=== PATIENT | male | born 1965 | race Caucasian/White ===

== ENCOUNTER 2021-11-17 09:29 | Inpatient (IN) | payer MEDICAID, OTHER ==
[~2021-11-17] VITALS: Ht 167.6 cm; Wt 108.4 kg
[2021-11-17] MEDS ORDERED: MORPHINE SULFATE 4 MG/ML CPJ (NOT FOR IM USE) IV ONE (10:15)
[2021-11-17] MEDS ORDERED: KETOROLAC 30MG/ML VIAL IV ONE (10:15)
[2021-11-17] MEDS ORDERED: DEXAMETHASONE 4MG/ML 1ML VIAL IV ONE (10:15)
[2021-11-17] MEDS ORDERED: MORPHINE SULFATE 4 MG/ML CPJ (NOT FOR IM USE) IV STA (12:41)
[2021-11-17 13:48] LABS: BASOPHILS % 0.3 % (0.0-2.0); EOSINOPHILS % 0.4 % (0.0-5.0); HEMATOCRIT. 36.6 % (42.0-52.0); HEMOGLOBIN. 13.1 g/dL (14.0-18.0); LYMPHOCYTES % 7.7 % (20.0-50.0); MEAN CORPUSCULAR HEMOGLOBIN 31.2 pg (28.0-32.0); MEAN PLATELET VOLUME 8.1 fl (7.4-10.4); NEUTROPHILS % 88.6 % (40.0-76.0); PLATELET 316 x1000/uL (130-400); RED CELL DISTRIBUTION WIDTH 12.6 % (11.6-14.6)
[2021-11-17 13:56] LABS: CHLORIDE 102 mEq/L (98-107)
[2021-11-17] MEDS ORDERED: ACETAMINOPHEN 325MG TABLET PO PRN ×2 (16:15)
[2021-11-17] MEDS ORDERED: DOCUSATE SODIUM 100MG CAPSULE PO PRN (16:15)
[2021-11-17] MEDS ORDERED: HYDROCODONE/ACETAMINOPHEN 10/325MG TABLET PO PRN (16:15)
[2021-11-17] MEDS ORDERED: LORAZEPAM 0.5MG TABLET PO PRN (16:15)
[2021-11-17] MEDS ORDERED: IPRATROPIUM/ALBUTEROL 0.5-3(2.5)MG/3ML NEB HHN PRN (16:15)
[2021-11-17] MEDS ORDERED: HYDROCODONE/ACETAMINOPHEN 5/325MG TABLET PO PRN (16:15)
[2021-11-17] MEDS ORDERED: CLONIDINE 0.1MG TABLET PO PRN (16:15)
[2021-11-17] MEDS ORDERED: NALOXONE HCL 0.4MG/ML VIAL IV PRN (16:30)
[2021-11-17 20:00] VITALS: BP_SYST 127; BP_SYST 139; BP_DIAS 63; BP_DIAS 73
[2021-11-17] MEDS: HYDROCODONE/ACETAMINOPHEN 10/325MG TABLET PO PRN (21:45)
[2021-11-17] MEDS: ONDANSETRON HCL 4MG/2ML INJ IV PRN (21:53)
[2021-11-17] MEDS ORDERED: HYDR-4001 PO (22:41)
[2021-11-17] MEDS ORDERED: TRAM50TA3 PO (22:41)
[2021-11-17] MEDS ORDERED: LISI20TA31 MT (22:42)
[2021-11-18] VITALS: BP 124/47
[2021-11-18 04:00] VITALS: BP 123/70
[2021-11-18] MEDS ORDERED: *PATIENT'S OWN MEDICATION STORAGE XX SCH (04:45)
[2021-11-18 07:44] LABS: BASOPHILS % 0.4 % (0.0-2.0); EOSINOPHILS % 0.8 % (0.0-5.0); HEMATOCRIT. 35.8 % (42.0-52.0); HEMOGLOBIN. 12.7 g/dL (14.0-18.0); LYMPHOCYTES % 20.3 % (20.0-50.0); MEAN CORPUSCULAR HEMOGLOBIN 31.4 pg (28.0-32.0); MEAN CORPUSCULAR VOLUME 88.1 fL (80.0-94.0); MEAN PLATELET VOLUME 8.4 fl (7.4-10.4); MONOCYTES % 9.6 % (2.0-8.0); NEUTROPHILS % 68.9 % (40.0-76.0); PLATELET 329 x1000/uL (130-400); RED BLOOD CELL COUNT 4.06 mill/uL (4.7-6.1); RED CELL DISTRIBUTION WIDTH 12.5 % (11.6-14.6)
[2021-11-18 07:48] LABS: CHLORIDE 103 mEq/L (98-107)
[2021-11-18 08:00] VITALS: BP 138/64
[2021-11-18] MEDS ORDERED: DEXTROSE 50% WATER 50ML SYRINGE IV PRN ×2 (12:45)
[2021-11-18] MEDS: INSULIN LISPRO 100 UNITS/ML SUBCUT SCH ×3 (12:50→22:11)
[2021-11-18] MEDS: LISINOPRIL 20MG TABLET PO SCH (13:18)
[2021-11-18] MEDS: LIDOCAINE 5% PATCH TOP SCH (13:19)
[2021-11-18] MEDS: BLOOD SUGAR DIAGNOSTIC STRIP TEST SCH ×3 (13:19→21:39)
[2021-11-18 15:23] VITALS: BP 127/59
[2021-11-18] MEDS: HYDROCODONE/ACETAMINOPHEN 10/325MG TABLET PO PRN (15:40)
[2021-11-18] MEDS: ENOXAPARIN 30MG/0.3ML SYR SUBCUT SCH ×2 (15:44→22:12)
[2021-11-18 16:42] LABS: CLARITY URINE CLEAR (CLEAR); COLOR URINE YELLOW (YELLOW); KETONES URINE NEGATIVE (NEGATIVE); LEUKOCYTE ESTERASE URINE NEGATIVE (NEGATIVE); NITRITE URINE NEGATIVE (NEGATIVE); OCCULT BLOOD URINE NEGATIVE (NEGATIVE); PH URINE 6.5 (4.5-8.0); PROTEIN URINE NEGATIVE (NEGATIVE); SPECIFIC GRAVITY URINE 1.019 (1.005-1.030)
[2021-11-18 17:02] LABS: *AMPHETAMINES SCREEN URINE NEGATIVE (NEGATIVE); *BARBITURATES SCREEN URINE NEGATIVE (NEGATIVE)
[2021-11-18 17:03] LABS: *BENZODIAZEPINES SCREEN URINE NEGATIVE (NEGATIVE); *COCAINE SCREEN URINE NEGATIVE (NEGATIVE); CANNABINOID URINE SCREEN NEGATIVE (NEGATIVE); METHADONE URINE SCREEN NEGATIVE (NEGATIVE); OPIATES URINE SCREEN PRESUMTIVE POSITIVE (NEGATIVE); PHENCYCLIDINE URINE SCREEN NEGATIVE (NEGATIVE)
[2021-11-18] MEDS: DEXAMETHASONE 4MG/ML 1ML VIAL IV SCH (17:53)
[2021-11-18 20:00] VITALS: BP 122/48
[2021-11-18] MEDS: MORPHINE SULFATE 2 MG/ML CPJ (NOT FOR IM USE) IV PRN (22:12)
[2021-11-19] VITALS: BP 128/40
[2021-11-19] MEDS: DEXAMETHASONE 4MG/ML 1ML VIAL IV SCH ×4 (00:28→17:39)
[2021-11-19 04:00] VITALS: BP 126/47
[2021-11-19] MEDS: BLOOD SUGAR DIAGNOSTIC STRIP TEST SCH ×4 (06:22→21:31)
[2021-11-19] MEDS: OMEPRAZOLE 20MG CAPSULE EXTENDED RELEASE PO SCH (06:46)
[2021-11-19] MEDS: INSULIN LISPRO 100 UNITS/ML SUBCUT SCH ×4 (07:50→21:40)
[2021-11-19 08:00] VITALS: BP 143/64
[2021-11-19 08:01] LABS: BASOPHILS % 0.3 % (0.0-2.0); EOSINOPHILS % 0.5 % (0.0-5.0); HEMATOCRIT. 35.7 % (42.0-52.0); HEMOGLOBIN. 12.8 g/dL (14.0-18.0); LYMPHOCYTES % 16.8 % (20.0-50.0); MEAN CORPUSCULAR HEMOGLOBIN 31.2 pg (28.0-32.0); MEAN CORPUSCULAR VOLUME 87.2 fL (80.0-94.0); MEAN PLATELET VOLUME 8.2 fl (7.4-10.4); MONOCYTES % 5.2 % (2.0-8.0); NEUTROPHILS % 77.2 % (40.0-76.0); PLATELET 362 x1000/uL (130-400); RED CELL DISTRIBUTION WIDTH 12.4 % (11.6-14.6)
[2021-11-19 08:04] LABS: CHLORIDE 102 mEq/L (98-107)
[2021-11-19] MEDS: ENOXAPARIN 30MG/0.3ML SYR SUBCUT SCH ×2 (09:00→21:15)
[2021-11-19 12:00] VITALS: BP 133/60
[2021-11-19] MEDS: LISINOPRIL 20MG TABLET PO SCH (13:10)
[2021-11-19] MEDS: LIDOCAINE 5% PATCH TOP SCH (13:21)
[2021-11-19 16:00] VITALS: BP 127/56
[2021-11-19 20:00] VITALS: BP 107/62
[2021-11-20] MEDS: DEXAMETHASONE 4MG/ML 1ML VIAL IV SCH ×4 (00:53→13:12)
[2021-11-20] MEDS: OMEPRAZOLE 20MG CAPSULE EXTENDED RELEASE PO SCH (06:57)
[2021-11-20] MEDS: INSULIN LISPRO 100 UNITS/ML SUBCUT SCH ×4 (07:50→21:04)
[2021-11-20 08:00] VITALS: BP 133/55
[2021-11-20] MEDS: BLOOD SUGAR DIAGNOSTIC STRIP TEST SCH ×4 (08:02→21:04)
[2021-11-20 08:33] LABS: BASOPHILS % 0.2 % (0.0-2.0); EOSINOPHILS % 0.1 % (0.0-5.0); HEMATOCRIT. 36.6 % (42.0-52.0); HEMOGLOBIN. 12.8 g/dL (14.0-18.0); MEAN CORPUSCULAR HEMOGLOBIN 30.3 pg (28.0-32.0); MEAN CORPUSCULAR VOLUME 86.8 fL (80.0-94.0); MEAN PLATELET VOLUME 8.4 fl (7.4-10.4); MONOCYTES % 5.5 % (2.0-8.0); NEUTROPHILS % 77.2 % (40.0-76.0); PLATELET 392 x1000/uL (130-400); RED BLOOD CELL COUNT 4.22 mill/uL (4.7-6.1); RED CELL DISTRIBUTION WIDTH 12.4 % (11.6-14.6)
[2021-11-20 09:02] LABS: CHLORIDE 103 mEq/L (98-107)
[2021-11-20] MEDS: ENOXAPARIN 30MG/0.3ML SYR SUBCUT SCH ×2 (10:29→20:51)
[2021-11-20] MEDS: LISINOPRIL 20MG TABLET PO SCH (10:29)
[2021-11-20] MEDS: LIDOCAINE 5% PATCH TOP SCH (11:24)
[2021-11-20 12:00] VITALS: BP 137/59
[2021-11-20] MEDS: MORPHINE SULFATE 2 MG/ML CPJ (NOT FOR IM USE) IV PRN (14:17)
[2021-11-20 16:00] VITALS: BP 139/67
[2021-11-20 20:00] VITALS: BP 126/63
[2021-11-21] VITALS: BP 130/68
[2021-11-21] MEDS: HYDROCODONE/ACETAMINOPHEN 5/325MG TABLET PO PRN ×2 (01:15→23:52)
[2021-11-21 04:00] VITALS: BP 128/64
[2021-11-21 05:46] LABS: BASOPHILS % 0.4 % (0.0-2.0); EOSINOPHILS % 0.9 % (0.0-5.0); HEMATOCRIT. 37.1 % (42.0-52.0); HEMOGLOBIN. 13.3 g/dL (14.0-18.0); MEAN CORPUSCULAR HEMOGLOBIN 31.2 pg (28.0-32.0); MEAN PLATELET VOLUME 8.2 fl (7.4-10.4); MONOCYTES % 8.2 % (2.0-8.0); NEUTROPHILS % 56.5 % (40.0-76.0); PLATELET 390 x1000/uL (130-400); RED BLOOD CELL COUNT 4.26 mill/uL (4.7-6.1); RED CELL DISTRIBUTION WIDTH 12.6 % (11.6-14.6)
[2021-11-21] MEDS: BLOOD SUGAR DIAGNOSTIC STRIP TEST SCH ×4 (06:43→20:50)
[2021-11-21] MEDS: FAMOTIDINE 20MG TABLET PO SCH ×2 (06:53→20:33)
[2021-11-21 07:40] LABS: CHLORIDE 103 mEq/L (98-107)
[2021-11-21] MEDS: INSULIN LISPRO 100 UNITS/ML SUBCUT SCH ×4 (07:50→20:50)
[2021-11-21 08:00] VITALS: BP 126/65
[2021-11-21] MEDS: ENOXAPARIN 30MG/0.3ML SYR SUBCUT SCH ×2 (09:20→20:34)
[2021-11-21] MEDS: LIDOCAINE 5% PATCH TOP SCH (09:20)
[2021-11-21] MEDS: DEXAMETHASONE 4MG/ML 1ML VIAL IV SCH (09:21)
[2021-11-21] MEDS: LISINOPRIL 20MG TABLET PO SCH (09:21)
[2021-11-21] MEDS: MORPHINE SULFATE 2 MG/ML CPJ (NOT FOR IM USE) IV PRN (09:30)
[2021-11-21 16:00] VITALS: BP 126/61
[2021-11-21 20:00] VITALS: BP 131/62
[2021-11-22] MEDS: HYDROCODONE/ACETAMINOPHEN 5/325MG TABLET PO PRN ×2 (05:53→05:54)
[2021-11-22 06:34] LABS: CHLORIDE 102 mEq/L (98-107)
[2021-11-22 06:43] LABS: BASOPHILS % 0.6 % (0.0-2.0); EOSINOPHILS % 1.4 % (0.0-5.0); HEMATOCRIT. 38.6 % (42.0-52.0); HEMOGLOBIN. 13.4 g/dL (14.0-18.0); LYMPHOCYTES % 35.5 % (20.0-50.0); MEAN CORPUSCULAR HEMOGLOBIN 30.2 pg (28.0-32.0); MEAN CORPUSCULAR VOLUME 87.3 fL (80.0-94.0); MONOCYTES % 8.4 % (2.0-8.0); NEUTROPHILS % 54.1 % (40.0-76.0); PLATELET 437 x1000/uL (130-400); RED BLOOD CELL COUNT 4.43 mill/uL (4.7-6.1); RED CELL DISTRIBUTION WIDTH 12.5 % (11.6-14.6)
[2021-11-22] MEDS: BLOOD SUGAR DIAGNOSTIC STRIP TEST SCH ×4 (07:33→21:33)
[2021-11-22] MEDS: FAMOTIDINE 20MG TABLET PO SCH ×2 (07:33→21:29)
[2021-11-22] MEDS: INSULIN LISPRO 100 UNITS/ML SUBCUT SCH ×4 (07:50→21:31)
[2021-11-22 08:00] VITALS: BP 120/62
[2021-11-22] MEDS: DEXAMETHASONE 4MG/ML 1ML VIAL IV SCH (08:02)
[2021-11-22] MEDS: LISINOPRIL 20MG TABLET PO SCH (08:04)
[2021-11-22] MEDS: ENOXAPARIN 30MG/0.3ML SYR SUBCUT SCH (08:04)
[2021-11-22] MEDS: LIDOCAINE 5% PATCH TOP SCH (08:05)
[2021-11-22 12:00] VITALS: BP 122/50
[2021-11-22 15:13] LABS: PROTHROMBIN TIME 10.9 sec (9.6-11.0)
[2021-11-22 15:55] VITALS: BP 132/61
[2021-11-22 20:00] VITALS: BP 153/77
[2021-11-23] VITALS (41 sets, daily range): BP systolic 90–159; BP diastolic 42–85
[2021-11-23] MEDS ORDERED: LIDOCAINE HCL/EPINEPHRINE 1%-EPI 1:100,000 30 ML VIAL INFIL ONE (05:37)
[2021-11-23] MEDS ORDERED: GENTAMICIN SULF 40MG/ML 2ML VIAL ONE (05:38)
[2021-11-23] MEDS ORDERED: THROMBIN (BOVINE) 5000 UNITS/VIAL TOP ONE (05:38)
[2021-11-23] MEDS: INSULIN LISPRO 100 UNITS/ML SUBCUT SCH ×4 (06:56→21:43)
[2021-11-23] MEDS: BLOOD SUGAR DIAGNOSTIC STRIP TEST SCH ×4 (07:12→21:43)
[2021-11-23] MEDS: FAMOTIDINE 20MG TABLET PO SCH ×2 (07:13→21:42)
[2021-11-23 07:37] LABS: BASOPHILS % 0.5 % (0.0-2.0); EOSINOPHILS % 1.5 % (0.0-5.0); HEMATOCRIT. 38.3 % (42.0-52.0); HEMOGLOBIN. 13.3 g/dL (14.0-18.0); LYMPHOCYTES % 39.4 % (20.0-50.0); MEAN CORPUSCULAR HEMOGLOBIN 30.5 pg (28.0-32.0); MEAN CORPUSCULAR VOLUME 87.7 fL (80.0-94.0); MEAN PLATELET VOLUME 7.9 fl (7.4-10.4); MONOCYTES % 7.9 % (2.0-8.0); NEUTROPHILS % 50.7 % (40.0-76.0); PLATELET 454 x1000/uL (130-400); RED BLOOD CELL COUNT 4.37 mill/uL (4.7-6.1); RED CELL DISTRIBUTION WIDTH 12.5 % (11.6-14.6)
[2021-11-23 07:54] LABS: CHLORIDE 104 mEq/L (98-107)
[2021-11-23 08:01] LABS: PHOSPHORUS 3.3 mg/dL (2.5-4.9)
[2021-11-23] MEDS: LISINOPRIL 20MG TABLET PO SCH (08:24)
[2021-11-23] MEDS: LIDOCAINE 5% PATCH TOP SCH (08:24)
[2021-11-23] MEDS: DEXAMETHASONE 4MG/ML 1ML VIAL IV SCH (08:24)
[2021-11-23] MEDS ORDERED: ROCURONIUM BROMIDE 10MG/ML VIAL 5ML IV ONE (10:45)
[2021-11-23] MEDS ORDERED: HYDROMORPHONE HCL/PF 2MG/ML (OR) ONE (10:45)
[2021-11-23] MEDS ORDERED: CEFAZOLIN SODIUM 1000MG/VIAL ONE (10:46)
[2021-11-23] MEDS ORDERED: DEXAMETHASONE 4MG/ML 1ML VIAL ONE (10:46)
[2021-11-23] MEDS ORDERED: HYDRALAZINE 20MG/ML VIAL ONE ×2 (11:00→13:06)
[2021-11-23] MEDS ORDERED: VECURONIUM BROMIDE 10 MG/VIAL IV ONE (11:08)
[2021-11-23] MEDS ORDERED: ALBUMIN HUMAN 25GM/100ML (25%) IV ONE (11:15)
[2021-11-23] MEDS ORDERED: NALOXONE HCL 0.4MG/ML VIAL IV PRN (13:00)
[2021-11-23] MEDS ORDERED: NALOXONE INJ IV PRN (13:30)
[2021-11-23] MEDS ORDERED: DIPHENHYDRAMINE INJ IV PRN (13:30)
[2021-11-23] MEDS ORDERED: HYDROMORPHONE PCA 10MG/50ML IV PRN (13:30)
[2021-11-23] MEDS ORDERED: ONDANSETRON INJ IV PRN (13:30)
[2021-11-23] MEDS ORDERED: CEFAZOLIN SODIUM 1000MG/VIAL IV SCH (14:00)
[2021-11-23] MEDS: NICARDIPINE 100 MG in SODIUM CHLORIDE 0.9% 60 ML IV PRN (14:30)
[2021-11-23] MEDS: DEXT 5%/LACTATED RINGERS 1,000 ML IV SCH ×2 (14:30→21:46)
[2021-11-23] MEDS: CEFAZOLIN 1000MG PREMIX 50 ML IV SCH (17:32)
[2021-11-24] VITALS (50 sets, daily range): BP systolic -10–154; BP diastolic -10–93
[2021-11-24] MEDS: CEFAZOLIN 1000MG PREMIX 50 ML IV SCH ×3 (01:15→19:38)
[2021-11-24] MEDS: NICARDIPINE 100 MG in SODIUM CHLORIDE 0.9% 60 ML IV PRN (01:24)
[2021-11-24] MEDS: MORPHINE SULFATE 4 MG/ML CPJ (NOT FOR IM USE) IV PRN ×3 (01:51→10:35)
[2021-11-24 06:00] LABS: BASOPHILS % 0.1 % (0.0-2.0); EOSINOPHILS % 0.3 % (0.0-5.0); HEMATOCRIT. 35.2 % (42.0-52.0); HEMOGLOBIN. 12.1 g/dL (14.0-18.0); LYMPHOCYTES % 12.2 % (20.0-50.0); MEAN CORPUSCULAR HEMOGLOBIN 30.3 pg (28.0-32.0); MEAN CORPUSCULAR VOLUME 88.2 fL (80.0-94.0); MONOCYTES % 8.3 % (2.0-8.0); NEUTROPHILS % 79.1 % (40.0-76.0); PLATELET 416 x1000/uL (130-400); RED BLOOD CELL COUNT 3.99 mill/uL (4.7-6.1); RED CELL DISTRIBUTION WIDTH 12.5 % (11.6-14.6)
[2021-11-24 06:03] LABS: CHLORIDE 103 mEq/L (98-107)
[2021-11-24] MEDS: FAMOTIDINE 20MG TABLET PO SCH ×2 (06:25→21:50)
[2021-11-24] MEDS: BLOOD SUGAR DIAGNOSTIC STRIP TEST SCH ×4 (06:25→21:52)
[2021-11-24] MEDS: INSULIN LISPRO 100 UNITS/ML SUBCUT SCH ×4 (06:29→22:00)
[2021-11-24] MEDS: DEXAMETHASONE 4MG/ML 1ML VIAL IV SCH (09:56)
[2021-11-24] MEDS: LISINOPRIL 20MG TABLET PO SCH (09:56)
[2021-11-24] MEDS: DEXT 5%/LACTATED RINGERS 1,000 ML IV SCH ×3 (09:56→21:59)
[2021-11-24] MEDS: ONDANSETRON HCL 4MG/2ML INJ IV PRN ×2 (09:57→21:58)
[2021-11-24] MEDS: LIDOCAINE 5% PATCH TOP SCH (15:18)
[2021-11-25] VITALS: BP 129/56
[2021-11-25] MEDS: CEFAZOLIN 1000MG PREMIX 50 ML IV SCH ×3 (02:59→17:08)
[2021-11-25 04:00] VITALS: BP 121/52
[2021-11-25] MEDS: FAMOTIDINE 20MG TABLET PO SCH ×2 (05:42→20:21)
[2021-11-25] MEDS: DEXT 5%/LACTATED RINGERS 1,000 ML IV SCH ×2 (05:42→15:18)
[2021-11-25] MEDS: BLOOD SUGAR DIAGNOSTIC STRIP TEST SCH ×4 (05:57→20:43)
[2021-11-25 08:00] VITALS: BP 127/51
[2021-11-25] MEDS: LISINOPRIL 20MG TABLET PO SCH (08:47)
[2021-11-25] MEDS: DEXAMETHASONE 4MG/ML 1ML VIAL IV SCH (08:48)
[2021-11-25] MEDS: INSULIN LISPRO 100 UNITS/ML SUBCUT SCH ×4 (08:49→20:45)
[2021-11-25] MEDS: LIDOCAINE 5% PATCH TOP SCH (09:00)
[2021-11-25 12:00] VITALS: BP 130/64
[2021-11-25 16:00] VITALS: BP 132/52
[2021-11-25 20:00] VITALS: BP 114/50
[2021-11-26] VITALS: BP 119/52
[2021-11-26 04:00] VITALS: BP 100/66
[2021-11-26] MEDS: DEXT 5%/LACTATED RINGERS 1,000 ML IV SCH ×2 (04:30→05:00)
[2021-11-26] MEDS: BLOOD SUGAR DIAGNOSTIC STRIP TEST SCH ×3 (05:38→17:20)
[2021-11-26] MEDS: FAMOTIDINE 20MG TABLET PO SCH (06:00)
[2021-11-26] MEDS: INSULIN LISPRO 100 UNITS/ML SUBCUT SCH ×3 (06:01→18:10)
[2021-11-26 08:00] VITALS: BP 111/48
[2021-11-26] MEDS: LISINOPRIL 20MG TABLET PO SCH (09:00)
[2021-11-26] MEDS: LIDOCAINE 5% PATCH TOP SCH (09:10)
[2021-11-26] MEDS: DEXAMETHASONE 4MG/ML 1ML VIAL IV SCH (09:10)
[2021-11-26 12:00] VITALS: BP 129/69
[2021-11-26 16:00] VITALS: BP 112/51
[2021-11-26 18:05] VITALS: BP 127/56
[2021-11-28] MEDS ORDERED: HYDR-4001 MT (10:15)
== END 2021-11-26 19:02 | disposition home health service (06) | DRG 304 ==
LOC: ER 09:29 → 6EST 13:36 → ENRESERV 15:27 → MICUNO 11-23 13:26 → 6EST 11-24 13:48
PROVIDERS: ADMIT Internal Medicine; ATTEND Internal Medicine
PROC: 0SG0071 Fusion of Lumbar Vertebral Joint with Autologous Tissue Substitute, Posterior Approach, Posterior Column, Open Approach (ICD-10-PCS; principal; 2021-11-23)
PROC: 00NY0ZZ Release Lumbar Spinal Cord, Open Approach (ICD-10-PCS; 2021-11-23)
PROC: 4A11X4G Monitoring of Peripheral Nervous Electrical Activity, Intraoperative, External Approach (ICD-10-PCS; 2021-11-23)
PROC: 0QP004Z Removal of Internal Fixation Device from Lumbar Vertebra, Open Approach (ICD-10-PCS; 2021-11-23)
PROC: 01NB0ZZ Release Lumbar Nerve, Open Approach (ICD-10-PCS; 2021-11-23)
DX: T84.296A Other mechanical complication of internal fixation device of vertebrae, initial encounter (principal); G82.20 Paraplegia, unspecified; M48.061 Spinal stenosis, lumbar region without neurogenic claudication; I10 Essential (primary) hypertension; G89.29 Other chronic pain; E11.65 Type 2 diabetes mellitus with hyperglycemia; E66.9 Obesity, unspecified; Z68.38 Body mass index [BMI] 38.0-38.9, adult; E55.9 Vitamin D deficiency, unspecified; Z20.822 Contact with and (suspected) exposure to COVID-19; Y83.8 Other surgical procedures as the cause of abnormal reaction of the patient, or of later complication, without mention of misadventure at the time of the procedure; M43.16 Spondylolisthesis, lumbar region; Z83.3 Family history of diabetes mellitus; Z86.12 Personal history of poliomyelitis; Q72.811 Congenital shortening of right lower limb; Y92.89 Other specified places as the place of occurrence of the external cause
CPT/HCPCS: 36415; 71045; 72100; 72131; 72148; 76000; 80048; 80053; 80305; 81003; 82962; 83036; 83735; 84100; 85025; 86850; 86900; 87426; 88300; 88304; 93005; 93306; 93970; 95863; 95925; 95926; 95928; 95929; 97116; 97162; 97164; 97166; 97530; 97535; 99285; C1713; J0360; J0690; J1100; J1170; J1580; J1650; J1815; J1885; J2270; J2405; J3490; J7050; J7121; P9047; C1762